=== PATIENT | female | born 1985 ===

== ENCOUNTER 2016-12-10 10:29 | Outpatient (CLI) | payer BC ==
[2016-12-10 11:43] LABS: HEMOGLOBIN 10.8 gm/dl (12.3-15.3); RED BLOOD COUNT 4.83 M/UL (4.00-5.10); WHITE BLOOD COUNT 7.6 K/UL (4.5-11.0)
[2016-12-10 12:02] LABS: BUN/CREATININE RATIO 27 (0-10)
== END 2016-12-10 20:38 | disposition home or self-care (01) ==
LOC: GENOP 10:29
PROVIDERS: Obstetrics & Gynecology
DX: O10.013 Pre-existing essential hypertension complicating pregnancy, third trimester (principal); Z3A.36 36 weeks gestation of pregnancy
CPT/HCPCS: 36415; 80053; 81001; 83615; 84550; 85025; G0463

== ENCOUNTER 2016-12-11 17:18 | Inpatient (IN) | payer BC ==
[2016-12-11 17:49] LABS: RED BLOOD COUNT 5.25 M/UL (4.00-5.10); WHITE BLOOD COUNT 9.2 K/UL (4.5-11.0)
[2016-12-13 02:54] LABS: HEMOGLOBIN 10.6 gm/dl (12.3-15.3)
[2016-12-14] MEDS ORDERED: COLACE 100MG C100 MG PO (10:58)
== END 2016-12-14 13:32 | disposition home or self-care (01) | DRG 766 ==
LOC: OB 17:18
PROVIDERS: Obstetrics & Gynecology; ADMIT Obstetrics & Gynecology
PROC: 0U7C7ZZ Dilation of Cervix, Via Natural or Artificial Opening (ICD-10-PCS; 2016-12-12)
PROC: 10907ZC Drainage of Amniotic Fluid, Therapeutic from Products of Conception, Via Natural or Artificial Opening (ICD-10-PCS; 2016-12-12)
PROC: 3E033VJ Introduction of Other Hormone into Peripheral Vein, Percutaneous Approach (ICD-10-PCS; 2016-12-12)
PROC: 10D00Z1 Extraction of Products of Conception, Low, Open Approach (ICD-10-PCS; principal; 2016-12-12 17:52)
DX: O11.4 Pre-existing hypertension with pre-eclampsia, complicating childbirth (principal); O62.0 Primary inadequate contractions; Z3A.37 37 weeks gestation of pregnancy; Z37.0 Single live birth
CPT/HCPCS: 36415; 82800; 83735; 85014; 85018; 85025; 90715; C9113; J0360; J0610; J0690; J2405; J2590; J2765; J2795; J3010; J3475; J7120